=== PATIENT | male | born 1960 | race Caucasian/White ===

== ENCOUNTER 2022-05-20 18:12 | Emergency (ER) | payer BC ==
[~2022-05-20] VITALS: Ht 170.2 cm; Wt 84.0 kg
[2022-05-20 18:22] VITALS: BP 115/69
== END 2022-05-20 18:50 | disposition left against medical advice (07) ==
LOC: ER 18:12
DX: Z53.21 Procedure and treatment not carried out due to patient leaving prior to being seen by health care provider (principal)